=== PATIENT | male | born 1980 | race Caucasian/White ===

== ENCOUNTER 2020-03-21 12:01 | Day surgery (SDC) | payer OTHER ==
[~2020-03-21] VITALS: Ht 188 cm; Wt 95.4 kg
== END 2020-03-21 13:50 | disposition home or self-care (01) ==
LOC: ORSCSDS 12:01
PROVIDERS: Internal Medicine Gastroenterology
PROC: 0DBP8ZX Excision of Rectum, Via Natural or Artificial Opening Endoscopic, Diagnostic (ICD-10-PCS; principal; 2020-03-21 13:15)
DX: R19.4 Change in bowel habit (principal); K62.1 Rectal polyp; K64.8 Other hemorrhoids; K57.30 Diverticulosis of large intestine without perforation or abscess without bleeding
CPT/HCPCS: 88305; J2250; J2704; J7120

== ENCOUNTER 2022-09-06 15:05 | Emergency (ER) | payer OTHER ==
[~2022-09-06] VITALS: Ht 188 cm; Wt 97.5 kg
[2022-09-06] MEDS ORDERED: CEPH500 PO (16:12)
[2022-09-06] MEDS ORDERED: Norco 5-325 Ta1 EACH PO (16:14)
== END 2022-09-06 17:11 | disposition home or self-care (01) ==
LOC: ER 15:05
DX: S68.125A Partial traumatic metacarpophalangeal amputation of left ring finger, initial encounter (principal); Z88.0 Allergy status to penicillin; Z88.8 Allergy status to other drugs, medicaments and biological substances; W23.0XXA Caught, crushed, jammed, or pinched between moving objects, initial encounter; Y99.0 Civilian activity done for income or pay
CPT/HCPCS: 73140; 99283-25; A9270